=== PATIENT | male | born 1975 | race Caucasian/White ===

== ENCOUNTER → 2016-11-25 | Outpatient (CLI) | payer OTHER ==
[~2016-11-25] MED LIST: FISH OIL 1,0001 EAC1 PO; LISINOPRIL10 MG PO; OMEPRAZOLE40 M1 PO; PRINIVIL10 MG PO; SIMVASTATIN40 MG PO
[2016-11-25 10:36] LABS: HEMATOCRIT 41.7 % (38.0-50.0); HEMOGLOBIN 14.3 gm/dL (13.0-16.0); MEAN CELL VOLUME 94.2 FL (83-96); MEAN CORPUSCULAR HEMOGLOBIN 32.4 PG (28-34); MEAN CORPUSCULAR HGB CONC 34.4 g/dL (30-36); RED BLOOD COUNT 4.42 X10e (3.90-5.60); RED CELL DISTRIBUTION WIDTH 13.1 % (11.0-15.5); WHITE BLOOD COUNT 10.7 X10e3 (4.0-10.5)
[2016-11-25 11:14] LABS: BUN/CREATININE RATIO 15.71; CALCIUM SERUM 9.7 mg/dL (8.4-10.2); CREATININE SERUM 0.7 mg/dL (0.6-1.4); GLOM FILT RATE Estimated 118.1 mL/min (>60); POTASSIUM 4.4 mmol/L (3.5-5.1)
== END | disposition home or self-care (01) ==
LOC: CAMB 09:50
PROVIDERS: Specialist
DX: Z01.812 Encounter for preprocedural laboratory examination (principal); E04.1 Nontoxic single thyroid nodule
CPT/HCPCS: 36415; 80048; 85027

== ENCOUNTER → 2016-12-02 | Day surgery (SDC) | payer OTHER ==
--- NOTE | ~2016-12-02 | OR ---
Unit #: [id number] #: [id number] Patient: JAMAAL LOWE JR [id number] [address] [address] [id number] MR#: [id number] NAME: JAMAAL LOWE JR ROOM: Date of Procedure: 12/02/2016 Admission Date: 12/02/2016 Surgeon: Tr Figueroa M.D. : 1975 Attending Physician: Tr Figueroa M.D. Primary Care Physician: Generic Doctor Not In System OPERATIVE REPORT PREOPERATIVE DIAGNOSIS Left thyroid nodule. POSTOPERATIVE DIAGNOSIS Left thyroid nodule. PROCEDURE PERFORMED Left thyroid lobectomy. ANESTHESIA By general endotracheal anesthesia. COMPLICATIONS There were none. FINDINGS Included a left thyroid nodule. INDICATIONS FOR PROCEDURE This is a 41-year-old male, who has had a persistent left thyroid nodule that was benign previous on FNA. He has had significant compressive symptoms related to this and presents today for a left thyroid lobectomy. DESCRIPTION OF PROCEDURE The patient was placed supine on the operating room table. Anesthesia achieved by general endotracheal anesthesia. This was done by way of a NIMs monitoring tube as the recurrent laryngeal nerve was monitored throughout the case. A 1% lidocaine with epinephrine was injected to the low midline neck incision site and an incision was made with 15 blade. Dissection was carried down through the subcutaneous tissues through the platysma and the platysma was divided at its medial aspect on each side. The strap muscles were identified medially and the SCM lateral. Sternocleidomastoid muscles laterally. Several anterior jugular veins were divided and ligated with Focus Harmonic. Supra muscular or extra muscular flaps were developed superiorly and inferiorly and then an Thuan retractor was placed. Strap muscles were divided at the midline and the left thyroid lobe was carefully dissected free from the overlying strap muscles. Superior pole was dissected first with blunt dissection and the Focus Harmonic Scalpel was used to take it down the superior pole vasculature. Fascial tissues and parathyroid tissue were carefully brought down and dissected free from the superior pole of the gland with bipolar cautery. Inferiorly, the middle thyroid vein and inferior thyroid Unit #: [id number] #: [id number] Patient: JAMAAL LOWE JR artery were divided and ligated with Focus Harmonic Scalpel. Then, the recurrent laryngeal nerve was carefully identified and followed to its course into the larynx and preserved. All overlying thyroid tissue was then carefully dissected free with bipolar cautery and the gland was divided at the isthmus with Focus Harmonic. Wound was irrigated. Again, the nerve did stimulate fine of the probe. At the conclusion of procedure, a small amount of Surgicel was placed and a 10-Wolof ROHINI drain was placed. Strap muscles were approximated with 4-0 Vicryl running stitch, 4-0 Vicryl running stitch was used to close subcutaneous tissue and then, a 5-0 subcuticular Prolene was used to close the skin. Dressing was placed. The patient was awakened and transferred to Recovery in stable condition. Dictated by... Christiano Castellon/angie TD: 12/04/2016 00:16 JOB #: [id number] OPERATIVE REPORT Page 1 of 1 X Tr Figueroa MD PROCEDURE OPERATIVE NOTE
== END | disposition home or self-care (01) ==
LOC: CSUR 07:30
DX: C73 Malignant neoplasm of thyroid gland (principal); E07.89 Other specified disorders of thyroid; F17.210 Nicotine dependence, cigarettes, uncomplicated; K21.9 Gastro-esophageal reflux disease without esophagitis; I10 Essential (primary) hypertension; E78.5 Hyperlipidemia, unspecified; Z82.49 Family history of ischemic heart disease and other diseases of the circulatory system; Z79.899 Other long term (current) drug therapy; Z90.49 Acquired absence of other specified parts of digestive tract; Z98.890 Other specified postprocedural states
CPT/HCPCS: 88307; J0131; J0330; J0690; J1170; J2250; J2370; J2710; J3010